=== PATIENT | female | born 1960 | race Caucasian/White ===

== ENCOUNTER 2016-09-26 02:35 | Emergency (ER) | payer OTHER ==
[2016-09-26 03:08] LABS: MANUAL DIFF NEEDED? NO
[2016-09-26 03:14] LABS: BASO% 0.5 % (0.0-0.8); EOS# 0.05 X1000 (0.0-0.7); EOS% 0.6 % (0.0-10.0); HEMOGLOBIN 14.2 g/dL (12.0-16.0); IMM GRAN# 0.02 X1000 (0.0-0.04); IMM GRAN% 0.2 % (0.0-0.5); LYMPH# 1.87 X1000 (1.2-3.4); LYMPH% 22.9 % (20.5-51.1); MCH 30.9 PG (27-31); MCHC 35.5 g/dL (33-37); MCV 87.1 FL (81-99); MONO# 1.25 X1000 (0.11-0.59); MONO% 15.3 % (1.7-9.3); NEUT% 60.5 % (42.2-75.2); PLT 224 X1000 (130-400); RBC 4.59 XMIL (4.2-5.4)
[2016-09-26] MEDS ORDERED: ZOFRAN IV ONE (03:17)
[2016-09-26] MEDS ORDERED: LOMOTIL PO ONE (03:18)
[2016-09-26] MEDS ORDERED: NS 1,000 ML IV ONE ×2 (03:18→06:44)
[2016-09-26 03:27] LABS: CALCIUM 9.2 mg/dL (8.8-10.2); POTASSIUM 3.3 mmol/L (3.5-5.1); TOTAL BILIRUBIN 0.28 mg/dL (0.20-1.00); TOTAL PROTEIN 6.6 g/dL (6.3-8.3)
--- NOTE | 2016-09-26 03:31 | PROVIDER DOCUMENTATION ---
HPI-Abdominal Pain/GI Problem - General Source: patient - History of Present Illness-ABD Abdominal Pain Onset Location: reports: generalized abdomen Pain Radiation: reports: no radiation Quality of Pain: reports: cramping Onset/Duration: reports: 2 days ago Timing: reports: still present Activities at Onset: reports: light activity Exposure to sick contacts?: Yes Modifying Factors: improves with: nothing Associated Symptoms: reports: vomiting, weakness Dark Stools Present?: reports: none noticed Rectal Bleeding: reports: none # of Diarrhea Episodes: 10 Rectal Pain: reports: none # of Vomiting Episodes: 2 <Vince Richards - Last Filed: 09/26/16 06:18> <Fadi Hinojosa - Last Filed: 09/26/16 07:15> - General Chief Complaint: N/V/D Stated Complaint: N/V/D Time Seen by Provider: 09/26/16 02:44 Allergies/Adverse Reactions: Patient Allergies Allergy/AdvReac Type Severity Reaction Status Date / Time No Known Allergies Allergy Verified 09/26/16 03:00 Home Medications: Home Medication List Medication Instructions Recorded Confirmed Last Taken Type Ondansetron Odt [Zofran 4 mg Odt] 4 mg PO Q8H PRN PRN #10 tablet 09/26/16 Unknown Rx Review of Systems - Adult - REVIEW OF SYSTEMS - ADULT Constitutional: reports: no symptoms reported Eyes: reports: no symptoms reported Ears, Nose, Mouth & Throat: reports: no symptoms reported Cardiovascular: reports: no symptoms reported Respiratory: reports: no symptoms reported Gastrointestinal: reports: no symptoms reported Genitourinary: reports: no symptoms reported Musculoskeletal: reports: no symptoms reported Integumentary: reports: no symptoms reported Neurological: reports: no symptoms reported Psychiatric: reports: no symptoms reported Endocrine: reports: no symptoms reported Hematologic/Lymphatic: reports: no symptoms reported Allergic/Immunologic: reports: no symptoms reported All Other Systems: Reviewed and Negative <Vince Richards - Last Filed: 09/26/16 06:18> Past History - Adult - PAST MEDICAL HISTORY-ADULT Major Childhood Illnesses: reports: denies history Neurological: reports: headaches/migraines Psychiatric: reports: anxiety, depression - PRIOR SURGERIES/PROCEDURES Surgical/Procedure History: reports: , other (uterine ablation) - IMMUNIZATION STATUS Childhood Immunizations: See Nurse Assessment Flu Vaccine: See Nurse Assessment - FAMILY HISTORY Family History: reviewed, not pertinent <Vince Richards - Last Filed: 09/26/16 06:18> - PAST MEDICAL HISTORY-ADULT Review of Records: reports: Nursing Assessment Review, Medications Reviewed <Fadi Hinojosa - Last Filed: 09/26/16 07:15> Physical Exam-General - PHYSICAL EXAM-ADULT Initial Vital Signs Reviewed: Yes - CONSTITUTIONAL General Appearance: appears well, alert, no apparent distress - EYES Eyes: PERRL/EOMI, pink conjunctivae - HEAD, EARS, NOSE, MOUTH & THROAT HENMT: normocephalic/atraumatic, moist mucous membranes, normal ENT inspection - NECK Neck: non-tender, full range of motion, supple - RESPIRATORY Respiratory: chest non-tender, lungs clear, normal breath sounds - CARDIOVASCULAR Cardiovascular: normal peripheral pulses, regular rate, rhythm, no edema - GASTROINTESTINAL (ABDOMEN) Abdominal Exam: non tender. negative: normal bowel sounds - GENITOURINARY Rectal Exam: deferred - LYMPHATIC Lymphatic: no adenopathy - MUSCULOSKELETAL Back Exam: normal inspection, no CVA tenderness Extremity: normal range of motion - SKIN Integumentary: normal color, normal turgor, warm/dry - NEUROLOGIC Neurologic: grossly normal - PSYCHIATRIC Psych/Mental Status: normal mood/affect <Vince Richards - Last Filed: 09/26/16 06:18> Progress - REASSESSMENT Reassessment #1 Time Reassessed: 06:18 Status: improving (repeat lab pending) - CHANGE OF SHIFT REPORT (ED Provider) Report Given and Care Transferred to:: Dr Hinojosa Time of Transfer: 06:19 Items Pending: Labs (Gastroenteritis) <Vince Richards - Last Filed: 09/26/16 06:18> - PLAN OF CARE/RESULTS Progress/Plan/Lab Results: Laboratory Results - last 24 hr 09/26/16 09/26/16 09/26/16 02:50 02:50 03:52 WBC 8.18 RBC 4.59 Hgb 14.2 Hct 40.0 MCV 87.1 MCH 30.9 MCHC 35.5 RDW Std Deviation 13.0 Plt Count 224 MPV 11.0 H Immature Gran % (Auto) 0.2 Neut % (Auto) 60.5 Lymph % (Auto) 22.9 [place] % (Auto) 15.3 H Eos % (Auto) 0.6 Baso % (Auto) 0.5 Immature Gran # (Auto) 0.02 Neut # (Auto) 4.95 Lymph # (Auto) 1.87 [place] # (Auto) 1.25 H Eos # (Auto) 0.05 Baso # (Auto) 0.04 Sodium 135 L Potassium 3.3 L Chloride 101 Carbon Dioxide 15 L Anion Gap 19 BUN 27 H Creatinine 1.0 H Estimated GFR/1.73 m2 58 BUN/Creatinine Ratio 27 Glucose 109 H Calculated Osmolality 276 Calcium 9.2 Total Bilirubin 0.28 AST 47 H ALT 43 H Alkaline Phosphatase 83 Total Protein 6.6 Albumin 4.0 Globulin 2.6 Albumin/Globulin Ratio 1.5 Amylase 32 Lipase 29 Urine Source CATH Urine Color YELLOW Urine Turbidity HAZY Urine pH 5.5 Ur Specific [place] 1.017 Urine Protein TRACE A Ur Glucose (Stick) NEGATIVE Ur Ketones (Stick) TRACE A Urine Blood SMALL A Urine Nitrite NEGATIVE Urine Bilirubin NEGATIVE Urobilinogen Dipstick NORMAL Urine Leukocytes LARGE A Urine WBC (Auto) 10-20 A Urine RBC (Auto) <10 U Epithel Cells (Auto) >10 A Urine Bacteria (Auto) 3+ 09/26/16 09/26/16 05:53 05:55 WBC RBC Hgb Hct MCV MCH MCHC RDW Std Deviation Plt Count MPV Immature Gran % (Auto) Neut % (Auto) Lymph % (Auto) [place] % (Auto) Eos % (Auto) Baso % (Auto) Immature Gran # (Auto) Neut # (Auto) Lymph # (Auto) [place] # (Auto) Eos # (Auto) Baso # (Auto) Sodium 139 Potassium 3.4 L Chloride 107 Carbon Dioxide 17 L Anion Gap 15 BUN 20 Creatinine 0.7 Estimated GFR/1.73 m2 > 60 BUN/Creatinine Ratio 29 Glucose 90 Calculated Osmolality 280 Calcium 8.2 L Total Bilirubin AST ALT Alkaline Phosphatase Total Protein Albumin Globulin Albumin/Globulin Ratio Amylase Lipase Urine Source CLEAN CATCH Urine Color STRAW Urine Turbidity CLEAR Urine pH 5.0 Ur Specific [place] 1.004 Urine Protein NEGATIVE Ur Glucose (Stick) NEGATIVE Ur Ketones (Stick) TRACE A Urine Blood TRACE A Urine Nitrite NEGATIVE Urine Bilirubin NEGATIVE Urobilinogen Dipstick NORMAL Urine Leukocytes TRACE A Urine WBC (Auto) <10 Urine RBC (Auto) <10 U Epithel Cells (Auto) <10 Urine Bacteria (Auto) NEGATIVE Vital Signs Temp Pulse Resp BP Pulse Ox 09/26/16 05:18 81 16 140/63 100 09/26/16 02:39 98.2 F 91 H 18 148/92 100 No Known Allergies Allergy (Verified 09/26/16 03:00) No Home Medications 09/26/16 Dietary Diet NPO Start SunSep 26 030 I&O 09/25/16 09/26/16 09/27/16 06:59 06:59 06:59 Output Total 100 Balance -100 Laboratory 09/26/16 09/26/16 09/26/16 05:55 05:53 03:52 WBC RBC Hgb Hct MCV MCH MCHC RDW Std Deviation Plt Count MPV Immature Gran % (Auto) Neut % (Auto) Lymph % (Auto) [place] % (Auto) Eos % (Auto) Baso % (Auto) Immature Gran # (Auto) Neut # (Auto) Lymph # (Auto) [place] # (Auto) Eos # (Auto) Baso # (Auto) Sodium 139 Potassium 3.4 L Chloride 107 Carbon Dioxide 17 L Anion Gap 15 BUN 20 Creatinine 0.7 Estimated GFR/1.73 m2 > 60 BUN/Creatinine Ratio 29 Glucose 90 Calculated Osmolality 280 Calcium 8.2 L Total Bilirubin AST ALT Alkaline Phosphatase Total Protein Albumin Globulin Albumin/Globulin Ratio Amylase Lipase Urine Source CLEAN CATCH CATH Urine Color STRAW YELLOW Urine Turbidity CLEAR HAZY Urine pH 5.0 5.5 Ur Specific [place] 1.004 1.017 Urine Protein NEGATIVE TRACE A Ur Glucose (Stick) NEGATIVE NEGATIVE Ur Ketones (Stick) TRACE A TRACE A Urine Blood TRACE A SMALL A Urine Nitrite NEGATIVE NEGATIVE Urine Bilirubin NEGATIVE NEGATIVE Urobilinogen Dipstick NORMAL NORMAL Urine Leukocytes TRACE A LARGE A Urine WBC (Auto) <10 10-20 A Urine RBC (Auto) <10 <10 U Epithel Cells (Auto) <10 >10 A Urine Bacteria (Auto) NEGATIVE 3+ 09/26/16 09/26/16 02:50 02:50 WBC 8.18 RBC 4.59 Hgb 14.2 Hct 40.0 MCV 87.1 MCH 30.9 MCHC 35.5 RDW Std Deviation 13.0 Plt Count 224 MPV 11.0 H Immature Gran % (Auto) 0.2 Neut % (Auto) 60.5 Lymph % (Auto) 22.9 [place] % (Auto) 15.3 H Eos % (Auto) 0.6 Baso % (Auto) 0.5 Immature Gran # (Auto) 0.02 Neut # (Auto) 4.95 Lymph # (Auto) 1.87 [place] # (Auto) 1.25 H Eos # (Auto) 0.05 Baso # (Auto) 0.04 Sodium 135 L Potassium 3.3 L Chloride 101 Carbon Dioxide 15 L Anion Gap 19 BUN 27 H Creatinine 1.0 H Estimated GFR/1.73 m2 58 BUN/Creatinine Ratio 27 Glucose 109 H Calculated Osmolality 276 Calcium 9.2 Total Bilirubin 0.28 AST 47 H ALT 43 H Alkaline Phosphatase 83 Total Protein 6.6 Albumin 4.0 Globulin 2.6 Albumin/Globulin Ratio 1.5 Amylase 32 Lipase 29 Urine Source Urine Color Urine Turbidity Urine pH Ur Specific [place] Urine Protein Ur Glucose (Stick) Ur Ketones (Stick) Urine Blood Urine Nitrite Urine Bilirubin Urobilinogen Dipstick Urine Leukocytes Urine WBC (Auto) Urine RBC (Auto) U Epithel Cells (Auto) Urine Bacteria (Auto) Vital Signs Temp Pulse Resp BP Pulse Ox 09/26/16 05:18 81 16 140/63 100 09/26/16 02:39 98.2 F 91 H 18 148/92 100 No Known Allergies Allergy (Verified 09/26/16 03:00) No Home Medications 09/26/16 Dietary Diet NPO Start Sun 7 0302 I&O 09/25/16 09/26/16 09/27/16 06:59 06:59 06:59 Output Total 100 Balance -100 Laboratory 09/26/16 09/26/16 09/26/16 05:55 05:53 03:52 WBC RBC Hgb Hct MCV MCH MCHC RDW Std Deviation Plt Count MPV Immature Gran % (Auto) Neut % (Auto) Lymph % (Auto) [place] % (Auto) Eos % (Auto) Baso % (Auto) Immature Gran # (Auto) Neut # (Auto) Lymph # (Auto) [place] # (Auto) Eos # (Auto) Baso # (Auto) Sodium 139 Potassium 3.4 L Chloride 107 Carbon Dioxide 17 L Anion Gap 15 BUN 20 Creatinine 0.7 Estimated GFR/1.73 m2 > 60 BUN/Creatinine Ratio 29 Glucose 90 Calculated Osmolality 280 Calcium 8.2 L Total Bilirubin AST ALT Alkaline Phosphatase Total Protein Albumin Globulin Albumin/Globulin Ratio Amylase Lipase Urine Source CLEAN CATCH CATH Urine Color STRAW YELLOW Urine Turbidity CLEAR HAZY Urine pH 5.0 5.5 Ur Specific [place] 1.004 1.017 Urine Protein NEGATIVE TRACE A Ur Glucose (Stick) NEGATIVE NEGATIVE Ur Ketones (Stick) TRACE A TRACE A Urine Blood TRACE A SMALL A Urine Nitrite NEGATIVE NEGATIVE Urine Bilirubin NEGATIVE NEGATIVE Urobilinogen Dipstick NORMAL NORMAL Urine Leukocytes TRACE A LARGE A Urine WBC (Auto) <10 10-20 A Urine RBC (Auto) <10 <10 U Epithel Cells (Auto) <10 >10 A Urine Bacteria (Auto) NEGATIVE 3+ 09/26/16 09/26/16 02:50 02:50 WBC 8.18 RBC 4.59 Hgb 14.2 Hct 40.0 MCV 87.1 MCH 30.9 MCHC 35.5 RDW Std Deviation 13.0 Plt Count 224 MPV 11.0 H Immature Gran % (Auto) 0.2 Neut % (Auto) 60.5 Lymph % (Auto) 22.9 [place] % (Auto) 15.3 H Eos % (Auto) 0.6 Baso % (Auto) 0.5 Immature Gran # (Auto) 0.02 Neut # (Auto) 4.95 Lymph # (Auto) 1.87 [place] # (Auto) 1.25 H Eos # (Auto) 0.05 Baso # (Auto) 0.04 Sodium 135 L Potassium 3.3 L Chloride 101 Carbon Dioxide 15 L Anion Gap 19 BUN 27 H Creatinine 1.0 H Estimated GFR/1.73 m2 58 BUN/Creatinine Ratio 27 Glucose 109 H Calculated Osmolality 276 Calcium 9.2 Total Bilirubin 0.28 AST 47 H ALT 43 H Alkaline Phosphatase 83 Total Protein 6.6 Albumin 4.0 Globulin 2.6 Albumin/Globulin Ratio 1.5 Amylase 32 Lipase 29 Urine Source Urine Color Urine Turbidity Urine pH Ur Specific [place] Urine Protein Ur Glucose (Stick) Ur Ketones (Stick) Urine Blood Urine Nitrite Urine Bilirubin Urobilinogen Dipstick Urine Leukocytes Urine WBC (Auto) Urine RBC (Auto) U Epithel Cells (Auto) Urine Bacteria (Auto) - REASSESSMENT Reassessment #2 Time Reassessed: 07:09 Status: improving (Pt is doing much better and really wants to go home. 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 Will infuse another liter NS and will d/c home after it.) <Fadi Hinojosa X - Last Filed: 09/26/16 07:15> Departure <Vince Richards - Last Filed: 09/26/16 06:18> - Departure Time of Disposition Order: 07:10 Certified Medical Emergency: Emergent <Fadi Hinojosa - Last Filed: 09/26/16 07:15> - Departure DIAGNOSIS: Dehydration, Hypokalemia Diarrhea Qualifiers: Diarrhea type: unspecified type Qualified Code(s): R19.7 - Diarrhea, unspecified Disposition: HOME 01 Condition: Stable Additional Instructions: Follow up with regular MD in 2-3 days. Plenty of oral fluids. Return to ER if your symptoms worsen. Over the counter Immodium as needed. Prescriptions: Ondansetron Odt [Zofran 4 mg Odt] 4 mg PO Q8H PRN PRN #10 tablet PRN Reason: Nausea And Vomiting Referrals: Allan Gomez [Primary Care Provider] - Physician Attestation
[2016-09-26 04:05] LABS: URINE MICRO REVIEW NEEDED? NO; URINE SOURCE CATH
[2016-09-26 04:07] LABS: BILIRUBIN URINE NEGATIVE (NEGATIVE); BLOOD URINE SMALL (NEGATIVE); COLOR YELLOW; GLUCOSE URINE NEGATIVE (NEGATIVE); LEUKOCYTES URINE LARGE (NEGATIVE); NITRITE URINE NEGATIVE (NEGATIVE); PH URINE 5.5; PROTEIN URINE TRACE mg/dL (NEGATIVE); SP GRAVITY URINE 1.017; TURBIDITY URINE HAZY (CLEAR); UROBILINOGEN URINE NORMAL (NORMAL)
[2016-09-26 04:08] LABS: UR EPITHELIAL CELLS >10 /HPF (<10); URINE BACTERIA 3+ /HPF; URINE CULTURE NEEDED? YES; URINE RBC <10 /HPF (<10)
[2016-09-26 06:10] LABS: URINE MICRO REVIEW NEEDED? NO; URINE SOURCE CLEAN CATCH
[2016-09-26 06:16] LABS: BILIRUBIN URINE NEGATIVE (NEGATIVE); BLOOD URINE TRACE (NEGATIVE); COLOR STRAW; GLUCOSE URINE NEGATIVE (NEGATIVE); LEUKOCYTES URINE TRACE (NEGATIVE); NITRITE URINE NEGATIVE (NEGATIVE); PROTEIN URINE NEGATIVE (NEGATIVE); SP GRAVITY URINE 1.004; TURBIDITY URINE CLEAR (CLEAR); UROBILINOGEN URINE NORMAL (NORMAL)
[2016-09-26 06:19] LABS: UR EPITHELIAL CELLS <10 /HPF (<10); URINE BACTERIA NEGATIVE /HPF; URINE CULTURE NEEDED? YES; URINE RBC <10 /HPF (<10); URINE WBC <10 /HPF (<10)
[2016-09-26] MEDS ORDERED: KLOR-CON PO ONE (06:45)
[2016-09-26 06:46] LABS: AGAP 15; BUN 20 mg/dL (8-22); CALCIUM 8.2 mg/dL (8.8-10.2); CHLORIDE 107 mmol/L (98-107); COSMO 280; POTASSIUM 3.4 mmol/L (3.5-5.1); SODIUM 139 mmol/L (136-145); TCO2 17 mmol/L (25-35)
[2016-09-26 08:04] VITALS: BP 128/69
== END 2016-09-26 08:06 | disposition home or self-care (01) ==
LOC: ED 02:35
DX: E87.6 Hypokalemia (principal); E86.0 Dehydration; R19.7 Diarrhea, unspecified; R11.2 Nausea with vomiting, unspecified; R51 Headache
CPT/HCPCS: 80048; 80053; 81001; 82150; 83690; 85025; 87088; J2405; J7030